=== PATIENT | male | born 1970 | race Two or more races ===

== ENCOUNTER → 2019-02-07 | Outpatient (REF) | payer OTHER | LOC: M LAB REF 10:48 | PROVIDERS: ATTEND Physician Assistant | DX: J02.9 Acute pharyngitis, unspecified (principal) ==

== ENCOUNTER 2020-07-10 08:35 | Emergency (ER) | payer BC, OTHER ==
[~2020-07-10] VITALS: Ht 175.3 cm; Wt 85.9 kg
[2020-07-10] MEDS ORDERED: FLON1SPR NARES (08:46)
[2020-07-10] MEDS ORDERED: EMLA CREAM 5GM TUBE (LIDOCAINE/PRILOCAINE) TOP ONE (09:10)
[2020-07-10 10:47] VITALS: BP 157/97
== END 2020-07-10 11:06 | disposition home or self-care (01) ==
LOC: M ED 08:35
DX: L73.9 Follicular disorder, unspecified (principal)

== ENCOUNTER → 2021-07-10 | Outpatient (CLI) | payer BC, OTHER ==
[~2021-07-10] MED LIST: BENA25CA4 PO; CLAR1TAB13 PO; DOXY-350 PO; FLON1SPR NARES
== END ==
LOC: M LABSMTC 09:30
PROVIDERS: ATTEND Anesthesiology
DX: Z01.818 Encounter for other preprocedural examination (principal); Z11.52 Encounter for screening for COVID-19

== ENCOUNTER 2021-07-14 07:36 | Day surgery (SDC) | payer BC, OTHER ==
[~2021-07-14] VITALS: Ht 175.3 cm; Wt 82.9 kg
[~2021-07-14 07:36] MED LIST changes: +LIDOCAINE 2% 100MG/5ML SDV (FOR ANES.) As Ordered ONE; +NS 1,000 ML IV ONE; +propofoL 200 MG/20 ML VIAL As Ordered ONE
[2021-07-14] MEDS ORDERED: propofoL 200 MG/20 ML VIAL As Ordered ONE (09:29)
[2021-07-14 09:57] VITALS: BP 108/68
== END 2021-07-14 10:00 | disposition home or self-care (01) ==
LOC: M OPP 07:36
PROVIDERS: ATTEND Internal Medicine Gastroenterology
DX: Z12.11 Encounter for screening for malignant neoplasm of colon (principal); K62.1 Rectal polyp; K63.5 Polyp of colon; K57.30 Diverticulosis of large intestine without perforation or abscess without bleeding; K64.8 Other hemorrhoids; Z79.2 Long term (current) use of antibiotics; Z91.018 Allergy to other foods